=== PATIENT | male | born 1995 | race Hispanic/Latino ===

== ENCOUNTER 2018-02-09 15:45 | Emergency (ER) | payer OTHER ==
[2018-02-09] MEDS ORDERED: LIDOCAINE 1%-EPI 1:100,000 20 ML VIAL IJ ONE (16:14)
== END 2018-02-09 16:59 | disposition home or self-care (01) ==
LOC: EDH 15:45
DX: S40.851A Superficial foreign body of right upper arm, initial encounter (principal); W56.52XA Struck by other fish, initial encounter; Y93.89 Activity, other specified; Y92.89 Other specified places as the place of occurrence of the external cause; Y99.8 Other external cause status
CPT/HCPCS: 10120; 73060; 99284; J3490